=== PATIENT | female | born 1950 | race Hispanic/Latino ===

== ENCOUNTER 2018-04-18 15:19 | Emergency (ER) | payer MEDICARE ==
[2018-04-18 15:20] VITALS: BMI 29.9
--- NOTE | 2018-04-18 15:48 | C.PDOC ---
History Of Present Illness 67 year old female presents to the ED for evaluation of left foot pain. Patient states something fell onto her left foot one month ago and she has been experiencing intermittent pain since then. While patient was walking today, she noticed a bump to the area which was not present before. She presents to the ED for further evaluation. Patient denies extremity numbness/weakness. Statement Request Clerk : Dr Gio Adames Chief Complaint (Nursing): Lower Extremity Problem/Injury History Per: Patient History/Exam Limitations: no limitations Onset/Duration Of Symptoms: Hrs, Other (one month ) Current Symptoms Are (Timing): Still Present Additional History Per: Patient Past Medical History Reviewed: Historical Data, Nursing Documentation, Vital Signs - Medical History PMH: No Chronic Diseases Surgical History: No Surg Hx Family History: States: Unknown Family Hx Review Of Systems Musculoskeletal: Positive for: Foot Pain (left ) Neurological: Negative for: Weakness, Numbness Physical Exam - Physical Exam Appears: Non-toxic, No Acute Distress Skin: Normal Color, Warm, Dry, No Ecchymosis Head: Atraumatic, Normacephalic Eye(s): bilateral: Normal Inspection Extremity: Normal ROM, Tenderness (mild, to dorsal aspect of left foot ), Capillary Refill (less than 2 seconds ), No Deformity, Swelling (mild, to dorsal aspect of left foot ) Pulses: Left Dorsalis Pedis: Normal, Right Dorsalis Pedis: Normal Neurological/Psych: Oriented x3, Normal Speech, Normal Cognition, Normal Sensation Gait: Steady ED Course And Treatment O2 Sat by Pulse Oximetry: 95 (on RA) Pulse Ox Interpretation: Normal - Other Rad foot XR X-Ray: Viewed By Me, Read By Radiologist Interpretation: PROCEDURE: Left Foot Radiographs. HISTORY: pain s.p injury 1 month ago. COMPARISON: None available. FINDINGS: BONES: No acute displaced fracture. Degenerative changes. JOINTS: No dislocation. SOFT TISSUES: Soft tissue swelling. No evidence of radiopaque foreign body. OTHER FINDINGS: None. IMPRESSION: Mild soft tissue swelling. No acute displaced fracture, dislocation, or significant joint effusion identified. If symptoms persist, or if there is continued clinical concern, x-ray follow-up in 7-10 days should be considered. Medical Decision Making Medical Decision Making: Impression: 67 year old female with left foot pain Plan: * left foot XR * reassess and disposition Progress: Left foot XR ordered and reviewed. On reassessment, patient is resting comfortably, showing no signs of distress and is stable for discharge. Patient is advised to follow up with her pod iatrist, Dr. Adames, within 1-2 days for further evaluation. Disposition Counseled Patient/Family Regarding: Diagnosis, Need For Followup - Disposition Referrals: Goi Adames DPM [Staff Provider] - Disposition: HOME/ ROUTINE Disposition Time: 17:01 Condition: GOOD Additional Instructions: FOLLOW UP WITH YOUR INCLUSION SPECIALIST TAKE PAIN MEDICINE NEEDED Instructions: Muscle and Bone Pain (DC) Forms: [employer] (Irish) - POA Present On Arrival: None - Clinical Impression Clinical Impression: Foot pain - PA / TRAFFIC OFFICER / Resident Statement MD/DO has reviewed & agrees with the documentation as recorded. - Scribe Statement The provider has reviewed the documentation as recorded by the Scribe (Faiza Doan) All medical record entries made by the Scribe were at my direction and personally dictated by me. I have reviewed the chart and agree that the record accurately reflects my personal performance of the history, physical exam, medical decision making, and the department course for this patient. I have also personally directed, reviewed, and agree with the discharge instructions and disposition.
[2018-04-18 15:59] VITALS: BP 167/89; PULSE 88; RESP 18; TEMP 98.5; O2SAT 95
--- NOTE | 2018-04-18 17:23 | RAD ---
PROCEDURE: Left Foot Radiographs. HISTORY: pain s.p injury 1 month ago COMPARISON: None available. FINDINGS: BONES: No acute displaced fracture. Degenerative changes. JOINTS: No dislocation. SOFT TISSUES: Soft tissue swelling. No evidence of radiopaque foreign body. OTHER FINDINGS: None. IMPRESSION: Mild soft tissue swelling. No acute displaced fracture, dislocation, or significant joint effusion identified. If symptoms persist, or if there is continued clinical concern, x-ray follow-up in 7-10 days should be considered.
== END 2018-04-18 17:23 | disposition home or self-care (01) ==
LOC: C.ER 15:19
DX: M79.672 Pain in left foot (principal)